=== PATIENT | female | born 1940 | race Caucasian/White ===

== ENCOUNTER → 2016-11-03 | Outpatient (CLI) | payer MEDICARE, BC ==
[~2016-11-03] MED LIST: ALBU1AER INH; AZOR10TA4 PO; CHOL50006 PO; CITA-48 PO; CLAR10CA3 PO; CLON.1 PO; DUONSOL2 NEB; DYAZ37.52 PO; FURO1TAB93 PO; LORA0.5T PO; MENT4GEL TOP; METO50TA PO; NORT25CA PO; PATA0.6S; PERC10TA27 PO; PULM180I INH; REST30CA PO; ZANTTAB9 PO
[2016-11-03 13:02] LABS: HEMATOCRIT 39.3 % (35.0-46.0); MEAN CELL VOLUME 89.2 FL (80.0-100.0); MEAN CORPUSCULAR HGB CONC 32.5 % (32.0-36.0); PLATELET COUNT 318 TH/MM3 (150-450); RED BLOOD COUNT 4.41 MIL/MM3 (4.00-5.30); REVIEW FLAG FINAL; WHITE BLOOD COUNT 9.8 TH/MM3 (4.0-11.0)
[2016-11-03 13:24] LABS: BICARBONATE 30.7 MEQ/L (21.0-32.0); POTASSIUM 3.6 MEQ/L (3.5-5.1)
[2016-11-03 13:33] LABS: FREE T4 1.28 NG/DL (0.76-1.46); INDIRECT BILIRUBIN 0.3 MG/DL (0.0-0.8); TOTAL BILIRUBIN ADULT 0.4 MG/DL (0.2-1.0)
== END ==
LOC: OLAB 08:36
PROVIDERS: ATTEND Family Medicine
DX: I12.9 Hypertensive chronic kidney disease with stage 1 through stage 4 chronic kidney disease, or unspecified chronic kidney disease (principal); N18.3 Chronic kidney disease, stage 3 (moderate); Z79.899 Other long term (current) drug therapy
CPT/HCPCS: 36415; 80048; 80061; 80076; 82306; 83721; 84439; 84443; 85027